=== PATIENT | female | born 1955 | race Caucasian/White ===

== ENCOUNTER 2024-04-16 10:47 | Emergency (ER) | payer OTHER, SELFPAY ==
[2024-04-16 10:55] VITALS: BP 160/85
[2024-04-16 11:26] LABS: % Basophils 0.7 % (0-2); % Eosinophils 1.1 % (0-6); % Immature Granulocytes 0.2 % (0-0.5); % Lymphocytes 28.2 % (20.5-51.1); % Monocytes 6.7 % (1.7-9.3); % Neutrophils 63.1 % (42.2-75.2); Absolute Eosinophils 0.1 10^3/uL (0-0.7); Absolute Lymphocytes 1.6 10^3/uL (1.2-3.4); Absolute Monocytes 0.4 10^3/uL (0.1-0.6); Absolute Neutrophils 3.6 10^3/uL (1.4-6.5); Hemoglobin 13.6 g/dL (12.0-16.0); Mean Corpuscular Hgb 31.9 pg (27.0-31.0); Mean Corpuscular Volume 93.7 fL (81.0-99.0); Mean Platelet Volume 8.8 fL (7.4-10.4); Nucleated Red Blood Cells % 0 %; Platelet Count 338 10^3/uL (130-400); Red Blood Cell Count 4.27 10^6/uL (4.20-5.40); Red Cell Dist. Width 13.2 % (11.5-14.5); White Blood Cell Count 5.7 10^3/uL (4.8-10.8)
[2024-04-16 11:39] LABS: ALT (SGPT) 15 U/L (0-35); AST (SGOT) 26 U/L (14-36); Albumin 4.9 g/dl (3.5-5.0); Alkaline Phosphatase 70 U/L (38-126); Blood Urea Nitrogen 11 mg/dl (7-17); Calcium 9.2 mg/dl (8.4-10.2); Carbon Dioxide 29 mmol/L (22-30); Chloride 91 mmol/L (98-107); Glucose 95 mg/dl (70-99); Potassium 4.8 mmol/L (3.5-5.1); Sodium 130 mmol/L (135-145); Total Bilirubin 0.6 mg/dl (0.2-1.3); Total Protein 7.8 g/dl (6.3-8.2); eGFR > 60.00
[2024-04-16 11:56] VITALS: BMI 27.0
--- NOTE | 2024-04-16 11:57 | ED.GENMED ---
History of Present Illness
General
Chief Complaint: Abnormal Lab Value
Source: patient
Exam Limitations: none
Time Seen by Provider: 04/16/24 11:25
History of Present Illness
History of Present Illness:
68yoF with a history of hyperlipidemia, hypothyroidism, anxiety, and tobacco use presenting for evaluation of abnormal outpatient labs. Patient had routine blood work 1 week ago. She was called a few days later and was told that her sodium levels
were low and her potassium levels were high. She was initially told to go to the ED although she was feeling well so repeat blood work was obtained yesterday. She was called today and told that her blood work was not any better and was again told
to go to the ED. Patient has the labs available on the [facility] tabitha on her phone. Potassium was 5.6 and sodium was 131 yesterday. Per review of her records, sodium was also 131 in April 2023 and was 129 in November 2022. Patient reports some
mild dyspnea on exertion over the past week. No shortness of breath at rest. She denies any chest pain, palpitations, leg swelling.
Past History
Past History
ED Past Medical History: Hypercholesterolemia and Hypothyroidism
ED Past Surgical History: None
Social History
Tobacco: Smoker (Used to smoke 1 pack/day but is down to half a pack per day)
Alcohol: Occasional
Drug: None
Personal:
Living: with family
Phy Exam
General Physical Exam
General Presentation: well appearing and no apparent distress
General age: appears stated age
General Skin: warm and dry
General Habitus: normal
General Mental: alert
ENT Exam
ENT Exam: normocephalic
Cardiovascular Exam
Cardiovascular Exam: regular rate/rhythm and no murmur
Pulmonary Exam
Pulmonary Exam: lungs clear, no respiratory distress, no rales, no crackles, no rhonchi and no wheezing
Neurological Exam
Neurological Exam: alert
[place] Coma Scale
Eye Opening: Spontaneous
Verbal Response: Oriented
Motor Response: Obeys Commands
GCS Total Score: 15
Skin Exam
Skin Exam: normal color and warm/dry
Psychiatric Exam
Psychiatric Exam: normal mood/affect
Course
Orders/Labs/Results
Orders:
Orders
04/16/24 10:58
ECG [Electrocardiogram (*1)] Urgent
Reason for Study: Other
Other Reason for Exam: Abnormal lab values
04/16/24 10:59
EKG- Treatment ONCE
04/16/24 11:12
Complete Blood Count/With Diff Urgent
04/16/24 11:13
Comprehensive Metabolic Panel Urgent
Magnesium Urgent
04/16/24 11:47
0.9% Sodium Chloride 500 ml [Nss] 500 ml IV BOLUS
CR Chest - 2 Views Urgent
Comment:
Reason For Exam: SOB
04/16/24 12:02
Troponin I Urgent
Abnormal Lab Results
04/16/24 04/16/24
11:12 11:13
MCH 31.9 H pg
(27.0-31.0)
Sodium 130 L mmol/L
(135-145)
Chloride 91 L mmol/L
(98-107)
04/16/24 11:12
04/16/24 11:13
Vital Signs
Initial and Last Documented VS:
Initial Vital Signs
Temp Pulse Resp BP Pulse Ox
98.2 F 85 20 160/85 98
04/16/24 10:55 04/16/24 10:55 04/16/24 10:55 04/16/24 10:55 04/16/24 10:55
Last Documented Vital Signs
Temp Pulse Resp BP Pulse Ox
98.2 F 69 20 151/91 96
04/16/24 10:55 04/16/24 13:30 04/16/24 13:30 04/16/24 12:05 04/16/24 12:15
MDM/Problems Addressed
Differential Diagnosis Includes:
68yoF here for low sodium and elevated potassium seen on outpatient labs. Had labs 1 week ago as well as yesterday. Relatively asymptomatic other than mild dyspnea on exertion x 1 week. She is hypertensive with otherwise normal vitals. She is well
appearing in no distress. Exam is reassuring. Differential diagnosis includes but is not limited to: dehydration, LOREN, electrolyte abnormality, medication side effect, lab error
Initial ED plan: Check cardiac labs, EKG, and CXR. IV fluid bolus.
*EKG
Interpreted by ED Provider?: Yes
EKG Intrepretation Date: 04/16/24
Heart Rate: 70
Rate: normal
Rhythm: sinus
Tyler: normal axis
Interval: normal interval
QRS Pattern: normal QRS
Ischemia: no ischemia
*Critical Care Note
Total Time (30-74mins, 75-104mins- exclusive of procedures): Not Applicable
Update Note
Update Note:
Potassium normal on today's labs. Sodium remains low at 130. Chloride also low at 91. Renal function is normal. No ischemic changes on EKG and troponin normal. Chest x-ray is clear.
I was able to review patient's outpatient blood work on her phone tabitha. I reviewed labs from yesterday, last week, as well as 2023 and 2022. Sodium has been persistently low on the last several checks and has been as low as 129 in 2022.
Medications reviewed. She has been on Pristiq for the past several years which has a known side effect of hyponatremia/SIADH. Suspect this may be the culprit of her persistent hyponatremia. No indication for hospitalization at this time. She was
advised to follow-up with her PCP to discuss discontinuing the Pristiq. ED return precautions discussed. Patient in agreement with plan and was discharged in stable condition.
ED Attending Note
-
Portions of this chart may have been created with voice recognition software.� Occasional wrong word or��sound alike� substitutions may have occurred due to the inherent limitations of voice recognition software.
Discharge Plan
Departure
Patient Disposition: Home (Routine Discharge)
Date of Disposition: 04/16/24
Time of Disposition: 14:10
Patient with high blood pressure during this ER visit?: Yes
Discharge Problem:
Hyponatremia
Instructions: Hyponatremia
Prescriptions:
No Action
atorvastatin 20 mg tablet
40 mg PO HS
levothyroxine 25 mcg tablet
25 mcg PO DAILY
montelukast 10 mg tablet
10 mg PO HS
desvenlafaxine succinate 100 mg tablet extended release 24 hr
100 mg PO HS
aspirin 81 mg Tablet,Delayed Release (Dr/Ec)
81 mg PO DAILY
calcium 600 mg Capsule
600 mg PO DAILY
Referrals:
Mel Ryan DO [Family Provider] -
Activity Restrictions/Additional Instructions:
Please call [facility] to establish a family doctor. [facility]: [phone]
Your potassium level was normal today. Your sodium remains low which may be related to your Pristiq.
Please follow-up with your family doctor for repeat blood work and to discuss stopping Pristiq. Return to the ER with any new or worsening symptoms.
Interventions
Interventions:
*Risk Screen - Suicide Last Done: 04/16/24 11:57
*General Assessment Last Done: 04/16/24 10:55
*Neglect/Abuse Screening Last Done: 04/16/24 11:57
ED- Fall Risk Assessment Last Done: 04/16/24 13:41
*ED COVID-19 Vaccine History Last Done: 04/16/24 11:56
*Nursing Disposition Last Done: 04/16/24 14:26
Discharge Date and Time
Discharge Date/Time: 04/16/24 14:27
Print Language: COLOMBIAN
[2024-04-16] MEDS: NSS 500 IV (12:01)
[2024-04-16 12:05] VITALS: BP 151/91
[2024-04-16 13:37] LABS: Troponin I < 0.012 ng/ml
== END 2024-04-16 14:27 | disposition home or self-care (01) ==
LOC: EMR 10:47
PROVIDERS: Emergency Medicine; Physician Assistant; EMERGENCY PHYSICIAN Emergency Medicine; FAMILY PHYSICIAN Family Medicine
DX: E87.1 Hypo-osmolality and hyponatremia (principal); F17.210 Nicotine dependence, cigarettes, uncomplicated; R03.0 Elevated blood-pressure reading, without diagnosis of hypertension; E03.9 Hypothyroidism, unspecified; E78.00 Pure hypercholesterolemia, unspecified
CPT/HCPCS: 99285; 96360; 71046; 80053; 83735; 84484; 85025; 93005